=== PATIENT | male | born 1970 | race Native Hawaiian/Other Pacific Islander ===

== ENCOUNTER 2020-02-07 11:31 | Outpatient (CLI) | payer OTHER | END 2020-02-07 23:24 | disposition home or self-care (01) | LOC: RAD 11:31 | DX: M25.50 Pain in unspecified joint (principal); M25.521 Pain in right elbow; M25.522 Pain in left elbow ==

== ENCOUNTER 2020-03-16 08:58 | Outpatient (CLI) | payer OTHER | END 2020-03-16 23:52 | disposition home or self-care (01) | LOC: RAD 08:58 | DX: R05 Cough (principal) ==

== ENCOUNTER 2020-10-15 12:51 | Outpatient (CLI) | payer BC | END 2020-10-15 19:14 | disposition home or self-care (01) | LOC: RAD 12:51 | PROVIDERS: ATTEND Nurse Practitioner Family | DX: I10 Essential (primary) hypertension (principal); M54.5 Low back pain; Z13.29 Encounter for screening for other suspected endocrine disorder; R31.9 Hematuria, unspecified; M25.551 Pain in right hip; R51.9 Headache, unspecified; E78.5 Hyperlipidemia, unspecified; M25.50 Pain in unspecified joint; F41.9 Anxiety disorder, unspecified; E66.9 Obesity, unspecified ==

== ENCOUNTER 2020-11-21 16:11 | Outpatient (CLI) | payer BC | END 2020-11-21 21:38 | disposition home or self-care (01) | LOC: RAD 16:11 | PROVIDERS: ATTEND Nurse Practitioner Family | DX: R10.9 Unspecified abdominal pain (principal) ==

== ENCOUNTER 2020-11-22 14:43 | Outpatient (CLI) | payer BC | END 2020-11-22 22:30 | disposition home or self-care (01) | LOC: LABW 14:43 | PROVIDERS: ATTEND Nurse Practitioner Family | DX: R10.9 Unspecified abdominal pain (principal); M25.552 Pain in left hip | CPT/HCPCS: 82272 ==

== ENCOUNTER 2020-11-26 09:41 | Outpatient (CLI) | payer BC | END 2020-11-26 20:57 | disposition home or self-care (01) | LOC: MRI 09:41 | PROVIDERS: ATTEND Nurse Practitioner Family | DX: M54.5 Low back pain (principal); M25.552 Pain in left hip; M54.10 Radiculopathy, site unspecified; R20.2 Paresthesia of skin; R31.9 Hematuria, unspecified ==

== ENCOUNTER 2021-11-22 17:55 | Emergency (ER) | payer BC ==
[~2021-11-22] VITALS: Ht 180.3 cm; Wt 127.9 kg
[2021-11-22 18:08] VITALS: TEMP 98.6
[2021-11-22] MEDS ORDERED: CLINDAMYCIN HY300 MG PO (20:35)
[2021-11-22 20:43] VITALS: BP 120/98
== END 2021-11-22 20:44 | disposition home or self-care (01) ==
LOC: ED 17:55
PROC: 0H9HXZZ Drainage of Right Upper Leg Skin, External Approach (ICD-10-PCS; principal; 2021-11-22)
DX: L03.115 Cellulitis of right lower limb (principal)
CPT/HCPCS: 87070; 87205; 99283

== ENCOUNTER 2022-06-09 14:01 | Emergency (ER) | payer BC ==
[~2022-06-09] VITALS: Ht 180.3 cm; Wt 127.9 kg
[~2022-06-09 14:01] MED LIST: CLINDAMYCIN HY300 MG PO
[2022-06-09 14:05] VITALS: TEMP 99
[2022-06-09 15:03] LABS: PLATELET COUNT 222 K/uL (142-355)
[2022-06-09 17:55] VITALS: BP 155/82
== END 2022-06-09 18:06 | disposition home or self-care (01) ==
LOC: ED 14:01
PROVIDERS: Emergency Medicine Emergency Medical Services
DX: N13.2 Hydronephrosis with renal and ureteral calculous obstruction (principal); Z87.442 Personal history of urinary calculi
CPT/HCPCS: 36415; 80048; 81000; 85027; 96360; 96361; 96374; 96376; 99284; J1885; J2270; J2405